=== PATIENT | female | born 1965 | race Caucasian/White ===

== ENCOUNTER → 2022-09-14 15:13 | Outpatient (CLI) | payer BC, SELFPAY ==
--- NOTE | ~2022-09-14 | MR_ITS ---
MRI of the left shoulder Technique: Axial proton-density fat-sat images, coronal proton density fat-sat and T2 fat-sat images, and sagittal T1-weighted and T2 fat-sat images were acquired. Clinical History: Pain Findings: There is mild AC joint degenerative change with small subacromial spur. Coracoclavicular, c oracoacromial, and coracohumeral ligaments are intact. There is mild tendinosis of the distal supraspinatus tendon, without partial or full-thickness tear. Infraspinatus tendon is intact. Subscapularis tendon is intact with minimal tendinosis. Tendon of the long head of the biceps is intact. Suspected subtle anterosuperior labral tear. There is mild chondromalacia along the inferior aspect of the humeral head. Inferior glenohumeral lig ament is intact. No joint effusion evident at the glenohumeral joint. No fluid distention of the suba cromial/subdeltoid bursa. No muscle atrophy or edema. Impression: Suspected subtle anterosuperior labral tear. MR arthrogram could be performed for further confirmatio n/evaluation. Mild rotator cuff tendinosis without partial or full-thickness tear. Mild AC joint degenerative change. Reviewed, dictated and finalized at location [facility]. [facility] Impression: Suspected subtle anterosuperior labral tear. MR arthrogram could be performed f or further confirmation/evaluation. Mild rotator cuff tendinosis without partial or full-thickness tear. Mild AC joint degenerative change.
== END ==
PROVIDERS: PCP Family Medicine; Visit Provider Orthopaedic Surgery
DX: M25.512 Pain in left shoulder (principal); G89.29 Other chronic pain; M75.82 Other shoulder lesions, left shoulder
CPT/HCPCS: 73221

== ENCOUNTER → 2022-09-20 13:46 | Outpatient (CLI) | payer BC, SELFPAY ==
--- NOTE | ~2022-09-20 | DEXA_ITS ---
Bone Density Report Name: BLANCO SALDIVAR Age: 56 Sex: Female Ethnicity: White Date of : 1965 Indication: postmenopausal; screening for osteoporosis; height loss; history of glucocorticoids; prior fracture; Referring Provider: LIANE CARVER Study: Bone densitometry was performed. Exam Date: September 20, 2022 Accession number: [id number] Bone Density: Region BMD T-score Z-score Classification AP Spine (L1-L4) 0.726 -2.9 -1.8 Osteoporosis Femoral Neck (Left) 0.581 -2.4 -1.3 Osteopenia Total Hip (Left) 0.731 -1.7 -1.0 Osteopenia Femoral Neck (Right) 0.607 -2.2 -1.1 Osteopenia Total Hip (Right) 0.706 -1.9 -1.2 Osteopenia Total Hip Mean 0.719 -1.8 -1.1 Osteopenia World Health Organization criteria for BMD impression classify patients as: Normal (T-score at or above -1.0), Osteopenia (T-score between -1.0 and -2.5), or Osteoporosis (T-score at or below -2.5). 10-year Fracture Risk: FRAX not reported because: Some T-score for Spine Total or Hip Total or Femoral Neck at or below -2.5 Clinical Information Provided by Patient: Has had a low trauma fracture Has taken Glucocorticoids Has used the following medications: Vitamin D, Calcium, MTV, prednisone Patient maximum height was 65 Menopause Age: 43 No regular weight bearing exercise Drinks caffeinated beverages Onset of menses at age 12 Number of children 2 Impression: The patient has established osteoporosis, based on the Total Spine T-score and the existence of a prior fracture. The patient has risk factors, including: previous fracture, history of glucocorticoid therapy. Discussion: HIGH RISK OF FRACTURE. BONE DENSITY IS UNDESIRABLY LOW AT ONE OR MORE SKELETAL SITES, CONSISTENT WITH POSTMENOPAUSAL OSTEOPOROSIS. This patient's lowest T-score, in a patient who has previously fractured, meets the World Health Organization's (WHO) criteria for severe osteoporosis. In untreated patients, the risk of osteoporotic fracture increases approximately two-fold for each 1.0 SD decrease in T-score. Low bone density is not the only risk factor for fracture; also consider factors such as patient's age, frailty or poor health, risk of falling, risk of injury, previous osteoporotic fracture, family history of osteoporosis, cigarette smoking, low body weight, etc. Not everyone with low bone mineral density has osteoporosis; osteomalacia and other metabolic bone disorders should also be considered. Patients who have osteoporosis should be evaluated for specific diseases and conditions (secondary causes) that may cause or contribute to bone loss. The [place] Association [employer] Endocrinologists (AACE) and National Osteoporosis Foundation (NOF) recommend pharmacologic intervention for all postmenopausal women whose T-score is in this range. The patient should follow a heal
== END ==
PROVIDERS: PCP Family Medicine; Visit Provider Obstetrics & Gynecology Gynecology
DX: Z78.0 Asymptomatic menopausal state (principal); M85.89 Other specified disorders of bone density and structure, multiple sites; M81.0 Age-related osteoporosis without current pathological fracture
CPT/HCPCS: 77080

== ENCOUNTER → 2023-05-05 08:52 | Outpatient (CLI) | payer BC, SELFPAY ==
--- NOTE | ~2023-05-05 | CT_ITS ---
EXAMINATION: CT chest abdomen pelvis w con DATE: 05/05/2023 09:17 INDICATION: Metastatic melanoma TECHNIQUE: Transaxial computed tomographic images of the chest, abdomen, and pelvis were obtained aft er the administration of 100 cc of Omnipaque 350 intravenous contrast. The dose-length product (DLP) was 1174.03 mGy-cm. Automated exposure control and iterative reconstruction technique were employed. COMPARISON: 05/06/2022 FINDINGS: CHEST CT: There is a stable 3 mm nodule of the right lower lobe. Additional 1 to 2 mm nodules of the lungs appe ar stable. Calcified pulmonary nodules are consistent with old granulomatous disease. There is mild d ependent atelectasis. No pleural effusion or pneumothorax. No pathologically enlarged thoracic lymph nodes are identified. The heart size is normal. ABDOMEN/PELVIS CT: There is a stable 3 mm hypoattenuating lesion of the spleen, likely a cyst or lymphangioma. The liver , pancreas, gallbladder, and adrenal glands are normal. Surgical changes in the stomach likely reflec t gastric sleeve surgery. The kidneys are unremarkable. No pathologically enlarged abdominal or pelvi c lymph nodes are identified. No free intraperitoneal gas or evidence of bowel obstruction. There are right pelvic surgical clips. The appendix is normal. A moderate volume of colonic stool is present. IMPRESSION: 1. No evidence of metastatic disease. Reviewed, dictated and finalized at location B.
== END ==
PROVIDERS: PCP Internal Medicine Medical Oncology; Visit Provider Internal Medicine Medical Oncology
DX: C79.9 Secondary malignant neoplasm of unspecified site (principal)
CPT/HCPCS: 71260; 74177; Q9967

== ENCOUNTER 2024-12-12 09:03 | Outpatient (CLI) | payer BC, SELFPAY ==
--- NOTE | ~2024-12-12 | DEXA_ITS ---
Bone Density Report Name: BLANCO SALDIVAR Age: 59 Sex: Female Ethnicity: White Date of : 1965 Indication: postmenopausal; screening for osteoporosis; height loss; cancer; Referring Provider: LIANE CARVER Study: Bone densitometry was performed. Exam Date: December 12, 2024 Accession number: [id number] Bone Density: Region BMD T-score Z-score Classification AP Spine(L1-L4) 0.745 -2.7 -1.5 Osteoporosis Femoral Neck (Left) 0.648 -1.8 -0.6 Osteopenia Total Hip (Left) 0.785 -1.3 -0.4 Osteopenia Femoral Neck (Right) 0.610 -2.1 -1.0 Osteopenia Total Hip (Right) 0.729 -1.7 -0.9 Osteopenia Total Hip Mean 0.757 -1.5 -0.7 Osteopenia World Health Organization criteria for BMD impression classify patients as: Normal (T-score at or above -1.0), Osteopenia (T-score between -1.0 and -2.5), or Osteoporosis (T-score at or below -2.5). 10-year Fracture Risk: FRAX not reported because: Some T-score for Spine Total or Hip Total or Femoral Neck at or below -2.5 Treated for osteoporosis Clinical Information Provided by Patient: Is being treated for osteoporosis Has used the following medications: Actonel (i.e. risedronate), Vitamin D, Calcium Has the following medical conditions: Cancer Patient maximum height was 65 Menopause Age: 42 No regular weight bearing exercise Drinks caffeinated beverages Onset of menses at age 12 Number of children 2 Impression: The patient has osteoporosis, based on the Total Spine T-score. Discussion: It is important to ask patients whether they are taking their medications and to encourage continued and appropriate compliance with their osteoporosis therapies to reduce fracture risk. It is also important to review their risk factors and encourage appropriate calcium and vitamin D intakes, exercise, fall prevention and other lifestyle measures. Follow-Up: Consider a repeat BMD and Vertebral Fracture Assessment (VFA) exam in 2 years or sooner if medically necessary, to reassess this patient's status. Reported by: VIRGIN[place] on 12/12/2024 9:40:00 AM. Reviewed, dictated and finalized at location [facility]
--- OUTSIDE RECORDS SUMMARY | 2024-12-12 09:34 | XMS_ITS | Clinical Summary ---
Author Organization [facility] Address [address] [place] [address] Care Team Providers Care Production Worker Name Role Phone Dhiraj Jane DO Primary Care Provider + Milad Jones DO Unavailable [phone] Alexandre Ingram MD Unavailable [phone] Allergies Active Allergy Reactions Criticality Noted Date Comments Iodine Itching,Rash,Other (See comments) Medium 12/31/2012 PATIENT ONLY HAS AN ALLERGY TO TOPICAL IODINE Sulfa (Sulfonamide Antibiotics) Unknown,Itching,Ra sh Medium 01/26/2017 Sulfachloropyrazine Sodium Hives Medium Reaction: hives, Sulfasalazine Rash Medium 12/31/2012 Medications multivitamin tabletIndications: Vitamin Deficiency Prevention Take 1 tablet by mouth daily Active L-TYROSINE ORAL Take 1,000 mg by mouth 2 (two) times a day Active elderberry fruit-honey 0.7-3 gram/7.5 mL liquid Take 1 each by mouth 2 (two) times a day Takes gummies Active fluticasone propionate (FLONASE) 50 mcg/actuation nasal spray Administer 1 spray into each nostril daily 16 g 08/04/20 22 Active risedronate (ACTONEL) 150 mg tablet TAKE 1 TABLET BY MOUTH ONCE EVERY MONTH 01/20/20 23 Active calcium/mag/D3/B12 /FA/B6/boron (CPBGQIN-BZI-S2-B1 1-L4-NA-BORON ORAL) 10/19/19 Active inulin (PREBIOTIC FIBER ORAL) 10/19/19 Active jgsvrlis-iuvklq-hx ack pepper 125 mg-6 mg- 50 mcg tablet,chewable 10/19/19 Active vitamin B complex no.6-ocshf-T-bioti n 1-60-300 mg-mg-mcg tablet 10/19/19 Active levothyroxine (SYNTHROID) 125 mcg tabletIndications: Acquired hypothyroidism Take 1 tablet (125 mcg total) by mouth daily 90 tablet 4 09/18/19 24 Active predniSONE (DELTASONE) 1 mg tablet TAKE 1 TABLET BY MOUTH THREE TIMES DAILY BEFORE MEAL(S) 90 tablet 12/12/19 24 Active Additional Information Patient not taking.Reported on 09/20/2024 biotin 1 mg tablet Take 1 tablet (1,000 mcg total) by mouth 3 (three) times a day Active Echinacea pur xt/goldenseal xt (ECHINACEA AND GOLDENSEAL ORAL) Take 450 mg by mouth Active UNABLE TO FIND Med Name: Silicia 6X 3 tablets daily Active hydrocortisone (Solu-CORTEF) 100 mg recon soln Inject 2 mL (100 mg total) into the muscle as instructed as needed (can't take po) 2 mL 1 01/28/20 24 Active Additional Information Patient not taking.Reported on 09/20/2024 ketorolac (TORADOL) 10 mg tablet Take 1 tablet (10 mg total) by mouth every 6 (six) hours as needed for pain 20 tablet 08/26/20 24 Active Additional Information Patient not taking.Reported on 09/20/2024 ondansetron (ZOFRAN) 4 mg tablet Take 1 tablet (4 mg total) by mouth every 6 (six) hours 12 tablet 08/26/20 24 Active Additional Information Patient not taking.Reported on 09/20/2024 predniSONE (DELTASONE) 5 mg tabletIndications: Acquired hypothyroidism,Adr enal insufficiency (Burt's disease) (HCC) Take 1.5 tablets (7.5 mg) by mouth daily 135 tablet 1 09/20/19 25 Active liothyronine (CYTOMEL) 5 mcg tabletIndications: Acquired hypothyroidism Take 1 tablet (5 mcg total) by mouth daily Take one half tab daily 09/20/19 25 026 Active oseltamivir (TAMIFLU) 75 mg capsule Take 1 capsule (75 mg total) by mouth 2 (two) times a day for 5 days 10 capsule 11/12/19 25 025 Active Problems Problem Noted Date Diagnosed Date Acute right ankle pain 04/15/2024 Chronic pansinusitis 04/05/2023 Assessment & Plan (04/05/2023 8:08 PM CDT): She has headaches which could be or maybe not due to sinusitis and I talked with her about this. I am recommending a sinus CT scan to further evaluate that. If it is negative I may be recommending referral to a neurologist or someone to manage tension headaches. She understands. Seasonal allergic rhinitis due to pollen 023 Assessment & Plan (04/05/2023 8:08 PM CDT): I recommended allergy testing. I otherwise recommended that she continue with her current allergy medications. We will schedule a follow-up afterwards to discuss these results and further plans. History of COVID-19 02/25/2022 History of DVT of lower extremity 01/26/2018 Polyneuropathy associated with critical illness 01/26/2018 S/P gastric surgery 01/25/2018 Metastatic melanoma 07/27/2017 Cancer Staging:Clinical stage from 12/01/2015:Stage IV(cT2a, cN3c, pM1c(0)) - Signed by Milad Jones DO on 09/01/2018 Chronic GERD 07/27/2017 HTN, goal below 140/90 07/27/2017 BMI 40.0-44.9, adult 02/23/2017 Assessment & Plan (02/23/2017 4:29 PM CDT): Diet and exercise discussed Bariatric surgery strongly recommended Pt probably aj have it done within the next few months Morbid obesity due to excess calories 02/23/2017 Adrenal insufficiency (Burt's disease) 2016 Assessment & Plan (02/23/2017 4:27 PM CDT): Continue Prednisone, 5 mg daily If tolerating well for the next week, call and will set up benigno for ACTH ( cosyntropin ) stimulation test. Hypophysitis 02/23/2017 Acquired hypothyroidism 02/23/2017 Assessment & Plan (02/23/2017 4:28 PM CDT): Check TSH, free T4 Adjust dose of Levothyroxine accordingly . 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, unspecified 12/15/2015 History of malignant melanoma 10/28/2015 Impaired fasting glucose 03/31/2015 Tarsal tunnel syndrome 07/29/2013 Plantar fasciitis 07/29/2013 Chronic osteomyelitis of foot 07/12/2013 Resolved Problems Problem Noted Date Diagnosed Date Resolved Date Adrenal insufficiency 05/29/20172019 Seasonal allergies 02/06/2014 5 Encounters Date Type Department Care Team Description 09/20/2024 8:15 AM GROUNDSMAN Office Visit [facility] [address] [place] [phone] Dhiraj Jane DO Annual physical exam (Primary Dx); Vitamin D deficiency; Seasonal allergic rhinitis due to pollen; Polyneuropathy associated with critical illness; Impaired fasting glucose; HTN, goal below 140/90; Chronic GERD; Adrenal insufficiency (Kris's disease) (HCC); Acquired hypothyroidism; Class 1 obesity without serious comorbidity with body mass index (BMI) of 30.0 to 30.9 in adult, unspecified obesity type; Acquired hypothyroidism; Adrenal insufficiency (Burt's disease) (HCC) from Last 3 Months Immunizations Immunization Administration Dates Next Due Influenza, Unspecified 09/17/2024(Deferr ed: Patient Refused),07/19/2023(Deferred: Patient Refused),07/19/2022(Deferred: Patient Refused),08/18/2020(Deferred: Patient Refused),06/18/2018(Deferred: Patient Refused) Pneumococcal Conjugate PCV 13 03/03/2023(Deferre d: Patient Refused) Pneumococcal Conjugate Pcv20 03/03/2023(Deferred : Patient Refused) Pneumococcal Polysaccharide PPV23 03/03/2023(Def erred: Patient Refused) Surgical History Surgery Date Site/Laterality Comments SECTION X2 LASIK 09/18/2006 - 09/17/2007 FOOT SURGERY 09/18/2011 - 09/17/2012 for plantar fascitis MELANOMA RESECTION 09/18/2012 - 09/17/2013 2016 SLEEVE GASTROPLASTY Medical History Medical History Date Comments Allergic rhinitis Deep vein thrombosis (HCC) Melanoma (HCC) Osteoporosis Adrenal insufficiency Family History Medical History Relation Name Comments No Known Problems Brother No Known Problems Daughter Heart attack Father Family history of myocardial infarction - (Added by TW Conv) Heart failure Father Prostate cancer Father Hypertension Mother Family history of hypertension - (Added by TW Conv) Osteoporosis Mother Bipolar disorder Son schizoaffective disorder Son Relation Name Status Comments Brother Alive Daughter Alive Father (Age 76) Mother Alive Son Alive Social History Tobacco Use Types Packs/Day Years Used Date Smoking Tobacco: Never Smokeless Tobacco: Never Tobacco Cessation:Counseling Given: Not Answered Alcohol Use Standard Drinks/Week Comments No 0 (1 standard drink = 0.6 oz pur e alcohol) AUDIT-C Answer Date Recorded Q1: How often do you have a drink containing alc ohol? Never 01/23/2024 Average Number of Drinks Not on file 024 Frequency of Binge Drinking Not on file 03/2024 PHQ-2 Answer Date Recorded PHQ-2 Total Score (If total score is 3 or more points, staff should administer the PHQ-9) 0 09/20/2024 Personal Safety Answer Date Recorded Have you ever been in or are you currently in a harmful physical or emotional relationship or is someone making you feel afraid or unsafe? Denies 08/26/2024 Comments No Sex and Gender Information Value Date Recorded Sex Assigned at Not on file Legal Sex Female 10:31 AM CDT Gender Identity Female 11/12/2020 2:39 PM GROUNDSMAN Sexual Orientation Straight 11/12/2020 2: 39 PM GROUNDSMAN Obstetrics History Last Filed Vital Signs Vital Sign Reading Time Taken Comments Blood Pressure 136/82 09/20/2024 8:08 AM GROUNDSMAN Pulse 88 09/20/2024 8:08 AM GROUNDSMAN Temperature 36.1 C (97 F) 09/20/2024 8:08 AM GROUNDSMAN Respiratory Rate 18 09/20/2024 8:08 AM GROUNDSMAN Oxygen Saturation 97% 09/20/2024 8:08 AM GROUNDSMAN Inhaled Oxygen Concentration - - Weight 89.2 kg (196 lb 9.6 oz) 09/20/2024 8:08 A M GROUNDSMAN Height 162.6 cm (5' 4 ) 09/20/2024 8:08 AM GROUNDSMAN Body Mass Index 33.75 09/20/2024 8:08 AM GROUNDSMAN Plan of Treatment Health Maintenance Due Date Last Done Comments Breast Cancer Screening-Mammogram 1965 Cervical Cancer Screening 1965 Hepatitis C Screening 1965 DTaP/Tdap/Td Vaccine (1 - Tdap) 1977 Hepatitis B Screening 1984 Pneumococcal vaccine <65 (1 of 2 - PCV) 1985 Zoster Vaccine (1 of 2) 1985 Influenza Vaccine (#1) 2024 Depression Screening 09/20/2025 09/20/2024, 03/03/2023, 02/25/2022, Additional history exists Regular Well Visit/Exam 18-64 09/20/2025, 03/03/2023, 02/25/2022, Additional history exists Colon Cancer Screening-Colonoscopy 06/28/2027 06/28/2022 Colon Cancer Screening-CT Colonography Discontinued 06/28/2022 Colon Cancer Screening-DNA Stool Discontinued 06/28/20 22, 02/22/2021 Colon Cancer Screening-FIT Discontinued 06/28/2022, Colon Cancer Screening-Sigmoidoscopy Discontinued 06/28/2022 Procedures Procedure Name Priority Date/Time Associated Diagnosis Comments COLONOSCOPY Routine 06/28/2022 from Last 3 Months or Most Recently Relevant to Health Maintenance Results * (ABNORMAL) Colonoscopy (06/28/2022) Anatomical Region Laterality Modality Other Historical Provider ENDOSCOPY PROCEDURES Yenny gentile Result from Last 3 Months or Most Recently Relevant to Health Maintenance Insurance [facility] Care Teams Production Worker Relationship Specialty Start Date End Date Dhiraj Jane DO [address] [place] [address] [id number] PCP - General 01/12/17 Milad Jones DO [address] [place] [address] [phone] Medical Oncologist/Hot Stick Man Hematology and Oncology 08/16/18 Alexandre Ingram MD [address] [place] [address] [phone] Referring Physician Surgery 10/09/20
--- OUTSIDE RECORDS SUMMARY | 2024-12-12 09:34 | XMS_ITS | Clinical Summary ---
Author Organization [facility] Address [address] [place] [address] Care Team Providers Care Cashier Assistant Name Role Phone Unavailable Primary Care Provider Unavailabl e Encounters Date Type Department Care Team Description 12/04/2024 External Device Data [facility] ABSTRACTION Provider, Abstract 11/27/2024 External Device Data [facility]STRACTION Provider, Abstract 11/26/2024 External Device Data [facility] ABSTRACTION Provider, Abstract 11/23/2024 External Device Data [facility] ABSTRACTION Provider, Abstract 11/23/2024 External Device Data ST[facility] ABSTRACTION Provider, Abstract 11/20/2024 External Device Data STL ABSTRACTION Provider, Abstract 11/06/2024 External Device Data [facility] ABSTRACTION Provider, Abstract 10/22/2024 External Device Data [facility] ABSTRACTION Provider, Abstract 10/10/2024 External Device Data [facility] ABSTRACTION Provider, Abstract from Last 3 Months Social History Tobacco Use Types Packs/Day Years Used Date Smoking Tobacco: Never Assessed Comments Unknown Sex and Gender Information Value Date Recorded Sex Assigned at Not on file Legal Sex Female 9:31 AM CDT Gender Identity Not on file Sexual Orientation Not on file Plan of Treatment Health Maintenance Due Date Last Done Comments Pre-Diabetes and Diabetes Screening 1965 HEPATITIS B VACCINES (1 of 3 - 19+ 3-dose series) 1985 PAP SMEAR 1987 CERVICAL CANCER SCREENING 1996 HPV/Cotest (30-65) 1996 PAP SMEAR 1996 DTAP/TDAP/TD VACCINES (1 - Tdap) 03/14/2006 03/13/20 06 BREAST CANCER SCREENING 2006 FIT-DNA Q 3 years 2011 FIT/FOBT Q 1 year 2011 Flex Sig/CT Colonography Q 5 years 2011 ZOSTER VACCINE (1 of 2) 2016 INFLUENZA VACCINE (#1) 2024 COLORECTAL SCREENING 06/28/2032 06/28/2022 Colorectal Cancer Screening 06/28/2032 PNEUMOCOCCAL VACCINE 0-49 YEARS Aged Out No longer eligible based on patient's age to complete this topic Insurance [employer] CHOICE
--- OUTSIDE RECORDS SUMMARY | 2024-12-12 09:34 | XMS_ITS | Clinical Summary ---
Author Organization [facility] Address [address] [place] [address] Care Team Providers Care Soil Expert Name Role Phone BuckDhiraj Primary Care Provider [phone] Source Comments [facility],non-owned Affiliates and Associated Physician Practices is amultiple site organization consisting of ambulatory clinics and hospital sitesin [place], [place], [place] and [place]. This disclosure is being madepursuant to the Care Everywhere program and may not contain all information available regarding this patient. Last updated 18.[facility] Allergies Active Allergy Reactions Criticality Noted Date Comments Iodine Itching,Rash Medium 12/31/2012 Sulfa Drugs Rash Medium 12/31/2012 Medications * Be aware that medications may not be up to date on this document. Alwaysverify current medications with the patient. Medication Sig Dispensed Refills Start Date End Date Status fluticasone propionate (FLONASE) 50 MCG/ACT nasal spray Active levothyroxine (SYNTHROID) 137 MCG tablet 6 12/02/2018 Active predniSONE (DELTASONE) 5 MG tablet 2 12/02/2018 Active hydrocortisone, rectal, (PROCTOZONE-HC) 2.5 % cream 07/27/2018 Active clotrimazole-betameth asone (LOTRISONE) 1-0.05 % cream as needed. 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, unspecified 12/15/2015 Malignant melanoma of lower extremity or hip Family History Medical History Relation Name Comments None Known Brother Status: Alive None Known Daughter Status: Alive Cancer - Prostate Father Status: Ollie madrigal Hypertension Mother Status: Alive None Known Sister None Status: Alive None Known Son Status: Alive Relation Name Status Comments Brother Daughter Father Mother Sister None Son Social History Tobacco Use Types Packs/Day Years Used Date Smoking Tobacco: Never Smokeless Tobacco: Never Alcohol Use Standard Drinks/Week Comments No 0 (1 standard drink = 0.6 oz pur e alcohol) Sex and Gender Information Value Date Recorded Sex Assigned at Not on file Gender Identity Not on file Sexual Orientation Not on file Last Filed Vital Signs Vital Sign Reading Time Taken Comments Blood Pressure 142/92 01/15/2020 9:55 AM CDT Pulse 74 01/15/2020 9:55 AM CDT Temperature 36.8 C (98.2 F) 01/15/2020 9:55 AM CDT Respiratory Rate 20 01/15/2020 9:55 AM CDT Oxygen Saturation 97% 01/15/2020 9:55 AM CDT Inhaled Oxygen Concentration - - Weight 85.7 kg (189 lb) 01/15/2020 9:55 AM CDT Height 165.1 cm (5' 5 ) 01/15/2020 9:55 AM CDT Body Mass Index 31.45 01/15/2020 9:55 AM CDT Plan of Treatment Health Maintenance Due Date Last Done Comments COLOGUARD (AGES 45-75) - COLON CA SCREENING 1966 COLON MONITORING 1966 COLONOSCOPY - COLON CA SCREENING 1966 CT COLONOGRAPHY - COLON CA SCREENING 1966 Colorectal Cancer Screening 1966 FIT - COLON CA SCREENING 1966 FLEX SIG - COLON CA SCREENING 1966 LIPID TESTING 1966 MAMMOGRAM 1966 PAP SMEAR 1966 COVID-19 VACCINE (#1) 1971 HIV SCREENING 1981 HEPATITIS C SCREENING 10/13/1984 DTAP/TDAP/TD VACCINES (1 - Tdap) 1985 HEPATITIS B VACCINE (1 of 3 - 19+ 3-dose series) 1985 PNEUMOCOCCAL VACCINE 50+ (1 of 2 - PCV) 1985 ZOSTER VACCINE (1 of 2) 1985 SCREENING FOR DIABETES 12/16/2018 6, 12/16/2015, 12/15/2015, Additional history exists INFLUENZA VACCINE (#1) 2024 DEPRESSION SCREENING 09/18/2024 HIB VACCINE Aged Out No longer eligi ble based on patient's age to complete this topic HPV VACCINE Aged Out No longer eligi ble based on patient's age to complete this topic MENINGOCOCCAL (Group B) VACCINE SHARED DECISION-MAKING Aged Out No longer eligible based on patient's age to complete this topic MENINGOCOCCAL GROUPS A/C/Y/W VACCINE Aged Out No longer eligible based on patient's age to complete this topic Procedures Procedure Name Priority Date/Time Associated Diagnosis Comments BASIC METABOLIC PANEL (CALCIUM TOTAL) Routine 12/17/2015 3:20 AM CDT from Last 3 Months or Most Recently Relevant to Health Maintenance Results * (ABNORMAL) BASIC METABOLIC PANEL (CALCIUM TOTAL) (12/17/2015 3:20 AM CDT) BUN 9 7 - 26 mg/dL [facility] Creatinine 0.9 0.6 - 1.2 mg/dL [facility] Sodium 136 136 - 145 mmol/L [facility] Potassium 3.8 3.5 - 4.5 mmol/L [facility] Chloride 104 98 - 107 mmol/L [facility] CO2 27 22 - 29 mmol/L [facility] Glucose 103 70 - 115 mg/dL [facility] Calcium 8.5 8.4 - 10.2 mg/dL [facility] Anion Gap 9 8 - 18 [facility] BUN/Creatinine Ratio 10 7 - 23 [facility] Osmolality Calculated 267(L) 270 - 300 mOsm/kg [facility] eGFR >60 >60 mL/min/1.7 3 m2 [facility] Blood specimen (specimen) BLOOD SPECIMEN / Unknown 12/17/2015 3:20 AM CDT 12/17/2015 3:27 AM CDT Alexandre Ingram MD LAB - CHEMISTRY [facility] [address] [phone] from Last 3 Months or Most Recently Relevant to Health Maintenance Advance Directives Documents on File Type Date Recorded Patient Metaphysics Teacher Expl anation Advance Directives and Livin g Will 12/15/2015 12:00 AM Care Teams Soil Expert Relationship Specialty [place] [address] [place] [id number] PCP - General 11/04/15
--- OUTSIDE RECORDS SUMMARY | 2024-12-12 09:34 | XMS_ITS | Encounter Summary ---
Author Organization [facility] Address [address] [place] [address] Care Team Providers Care Human Resource Assistant Name Role Phone Dhiraj Duque MD Primary Care Provider Dhiraj Harrison DO Primary Care Provider [phone] Encounter Details Date Type Department Care Team (Latest Contact Info) Description 05/18/2018 Abstract [facility] Anuja Pizarro MD [address] [place] [id number] Social History Tobacco Use Types Packs/Day Years Used Date Smoking Tobacco: Never Assessed Comments Unknown Sex and Gender Information Value Date Recorded Sex Assigned at Not on file Legal Sex Female 5:28 PM CDT Gender Identity Not on file Sexual Orientation Not on file documented as of this encounter Plan of Treatment Not on file documented as of this encounter Visit Diagnoses Not on filedocumented in this encounter Additional Health Concerns Infection Onset Date Last Indicated Resolved Time COVID-19 Rule Out 08/18/2021 08/18/2021 08/20/2021 7:41 AM WOVEN LABEL DESIGNER COVID-19 Rule Out 10/04/2021 10/04/2021 10/05/2021 4:55 PM WOVEN LABEL DESIGNER COVID-19 Confirmed 10/04/2021 10/04/2021 12:35 AM WOVEN LABEL DESIGNER documented as of this encounter Care Teams Human Resource Assistant Relationship Specialty Start Date End Date Dhiraj Duque MD PCP - General 01/03/13 08/27/18 Dhiraj Jane DO [address] [place], [place] [id number] PCP - General FAMILY PRACTICE 08/28/18 documented as of this encounter
--- OUTSIDE RECORDS SUMMARY | 2024-12-12 09:34 | XMS_ITS | Referral Summary ---
Author Organization [facility] Address [address] [place] [address] Care Team Providers Care Weaving Machine Operator Name Role Phone Dhiraj Jane DO Primary Care Provider + Milad Jones DO Unavailable [phone] Alexandre Ingram MD Unavailable [phone] Encounters Date Type Department Care Team Description 09/20/2024 8:15 AM FUNNEL COATER Office Visit [facility] Primary Care [address] [place] [address] [address] [place] [phone] Dhiraj Jane DO Annual physical exam (Primary Dx); Vitamin D deficiency; Seasonal allergic rhinitis due to pollen; Polyneuropathy associated with critical illness; Impaired fasting glucose; HTN, goal below 140/90; Chronic GERD; Adrenal insufficiency (Coos's disease) ([facility]); Acquired hypothyroidism; Class 1 obesity without serious comorbidity with body mass index (BMI) of 30.0 to 30.9 in adult, unspecified obesity type; Acquired hypothyroidism; Adrenal insufficiency (Coos's disease) ([facility]) from Last 3 Months Allergies Active Allergy Reactions Criticality Noted Date [...] EVERY MONTH 01/20/20 23 Active calcium/mag/D3/B12 /FA/B6/boron ([id number] 7-G4-TC-BORON ORAL) 10/19/19 23 Active inulin (PREBIOTIC FIBER ORAL) 10/19/19 23 Active fdpmgjwt-aldjwq-br ack pepper 125 mg-6 mg- 50 mcg tablet,chewable 10/19/19 23 Active vitamin B complex no.7-xbwdz-L-bioti n 1-60-300 mg-mg-mcg tablet 10/19/19 23 Active levothyroxine (SYNTHROID) 125 mcg tabletIndications: Acquired [...] 5 mg tabletIndications: Acquired hypothyroidism,Adr enal insufficiency (Coos's disease) (HCC) Take 1.5 tablets (7.5 mg) [...] due to excess calories 02/23/2017 Adrenal insufficiency (Coos's disease) 2016 Assessment & Plan (02/23/2017 4:27 [...] Adrenal insufficiency 05/29/20172019 Seasonal allergies 02/06/2014 5 Immunizations Immunization Administration Dates Next Due Influenza, Unspecified 09/17/2024(Deferr ed: Patient Refused),07/19/2023(Deferred: Patient Refused),07/19/2022(Deferred: Patient Refused),08/18/2020(Deferred: Patient Refused),06/18/2018(Deferred: Patient Refused) Pneumococcal Conjugate PCV 13 03/03/2023(Deferre d: Patient Refused) Pneumococcal Conjugate Pcv20 03/03/2023(Deferred : Patient Refused) Pneumococcal Polysaccharide PPV23 03/03/2023(Def erred: Patient Refused) Social History Tobacco Use Types Packs/Day Years [...] CDT Gender Identity Female 11/12/2020 2:39 PM FUNNEL COATER Sexual Orientation Straight 11/12/2020 2: 39 PM FUNNEL COATER Last Filed Vital Signs Vital Sign Reading Time Taken Comments Blood Pressure 136/82 09/20/2024 8:08 AM FUNNEL COATER Pulse 88 09/20/2024 8:08 AM FUNNEL COATER Temperature 36.1 C (97 F) 09/20/2024 8:08 AM FUNNEL COATER Respiratory Rate 18 09/20/2024 8:08 AM FUNNEL COATER Oxygen Saturation 97% 09/20/2024 8:08 AM FUNNEL COATER Inhaled Oxygen Concentration - - Weight 89.2 kg (196 lb 9.6 oz) 09/20/2024 8:08 A M FUNNEL COATER Height 162.6 cm (5' 4 ) 09/20/2024 8:08 AM FUNNEL COATER Body Mass Index 33.75 09/20/2024 8:08 AM FUNNEL COATER Plan of Treatment Not on file Procedures Procedure Name Priority Date/Time Associated Diagnosis Comments COLONOSCOPY Routine 06/28/2022 from Last 3 Months or Most Recently Relevant to Health Maintenance Results * (ABNORMAL) Colonoscopy (06/28/2022) Anatomical Region Laterality Modality Other Historical Provider ENDOSCOPY PROCEDURES Yenny gentile Result from Last 3 Months or Most Recently Relevant to Health Maintenance Insurance [employer] Care Teams Weaving Machine Operator Relationship Specialty Start Date End Date Dhiraj Jane DO [address] [place] [address] PCP - General 01/12/17 Milad Jones DO [address] [place] [address] Medical Oncologist/Postal Transportation Clerk Hematology and Oncology 08/16/18 Alxeandre Ingram MD [address] [place] [address] Referring Physician Surgery 10/09/20
--- OUTSIDE RECORDS SUMMARY | 2024-12-12 09:34 | XMS_ITS | Encounter Summary ---
Author Organization [facility] Care Team Providers Care Long Wall Mining Machine Tender Name Role Phone Dhiraj Jane DO Primary Care Provider + Milad Jones DO Unavailable [phone] Alexandre Ingram MD Unavailable [phone] Encounter Details Date Type Department Care Team (Latest Contact Info) Description 08/17/2017 Orders Only [facility] CLINCONV Provider, MD Aye [address] [place] [address] Social History Tobacco Use Types Packs/Day Years Used Date Smoking Tobacco: Never Alcohol Use Standard Drinks/Week Comments No 0 (1 standard drink = 0.6 oz pur e alcohol) Comments Unknown Sex and Gender Information Value Date Recorded Sex Assigned at Not on file Legal Sex Female 10:31 AM CDT Gender Identity Female 11/12/2020 2:39 PM CLINICAL TECHNICIAN Sexual Orientation Straight 11/12/2020 2: 39 PM CLINICAL TECHNICIAN documented as of this encounter Plan of Treatment Not on file documented as of this encounter Procedures Procedure Name Priority Date/Time Associated Diagnosis Comments PROCEDURE - RESULT 09/01/2017 12 :00 AM CLINICAL TECHNICIAN documented in this encounter Results * PROCEDURE - RESULT (09/01/2017 12:00 AM CLINICAL TECHNICIAN) Narrative 09/01/2017 12:00 AM CLINICAL TECHNICIAN Ordered by an unspecified provider. us Historical Provider Final Res ult documented in this encounter Visit Diagnoses Not on filedocumented in this encounter Additional Health Concerns Infection Onset Date Last Indicated Resolved Time COVID: Suspected 08/04/2022 08/04/2022 08/04/2022 8:24 AM CLINICAL TECHNICIAN Influenza, adult 08/04/2022 08/04/2022 08/11/2022 3:05 AM CLINICAL TECHNICIAN documented as of this encounter Care Teams Long Wall Mining Machine Tender Relationship Specialty Start Date End Date Dhiraj Jane DO [address] [facility] [address] [place] [address] PCP - General 01/12/17 [place] [address] [place] [address] Medical Oncologist/Line Repairer Tower Hematology and Oncology 08/16/18 Alexadnre Ingram MD [address] [place] [phone] Referring Physician Surgery 10/09/20 documented as of this encounter
--- OUTSIDE RECORDS SUMMARY | 2024-12-12 09:34 | XMS_ITS | Encounter Summary ---
Author Organization [facility] Address [address] [place] [address] Care Team Providers Care Sack Keeper Name Role Phone Dhiraj Jane DO Primary Care Provider [phone] Encounter Details Date Type Department Care Team (Late st Contact Info) Description 11/19/[address] [address] [facility] Diabetes and Endocrinology - [address] [address] Jerica Crook MD Test Results Social History Tobacco Use Types Packs/Day Years Used Date Smoking Tobacco: Never Smokeless Tobacco: Never Alcohol Use Standard Drinks/Week Comments No 0 (1 standard drink = 0.6 oz pur e alcohol) AUDIT-C Answer Date Recorded Frequency of Alcohol Consumption Never 09/05/2018 Average Number of Drinks Not on file 018 Frequency of Binge Drinking Not on file 08/18 Comments Unknown Sex and Gender Information Value [...] Rule Out 08/18/2021 08/18/2021 08/20/2021 7:41 AM HISTOLOGICAL ILLUSTRATOR COVID-19 Rule Out 10/04/2021 10/04/2021 10/05/2021 4:55 PM HISTOLOGICAL ILLUSTRATOR COVID-19 Confirmed 10/04/2021 10/04/2021 12:35 AM HISTOLOGICAL ILLUSTRATOR documented as of this encounter Care Teams Sack Keeper Relationship Specialty Start Date End Date Dhiraj Jane DO [address] [place] [address] PCP - General FAMILY PRACTICE 08/28/18 documented as of this encounter
--- OUTSIDE RECORDS SUMMARY | 2024-12-12 09:35 | XMS_ITS | Clinical Summary ---
Author Organization [facility] Address [facility] [place] [address] Care Team Providers Care Csw Name Role Phone Dhiraj Jane DO Primary Care Provider [phone] Allergies Active Allergy Reactions Criticality Noted Date Comments Iodine Rash,Itching,Unknown ,Ot her (see comment) Medium 07/26/2012 Reaction: itiching, TOPICAL IODINE ONLY Patient only allergic to topical iodine PATIENT ONLY HAS AN ALLERGY TO TOPICAL IODINE Sulfa Antibiotics Rash,Itching,Unknown Medium 07/26/20 12 Sulfasalazine Rash Medium 12/31/2012 Medications estradiol 0.1 MG/GM vaginal cream As needed 0 8 Active Multiple Vitamin (MULTI VITAMIN DAILY) Tab Take 1 tablet by mouth daily. Active clotrimazole-betam ethasone cream as needed. 8 Active Calcium 250 MG Cap Take 2 capsules by mouth daily. Active Misc Natural Products (SM ECHINACEA-GOLDENSE AL OR) 450mg daily Active NON FORMULARY Elderberry fruit-honey gummies Active PROCTO-MED HC 2.5 % rectal cream as needed. 1 Active Cholecalciferol (VITAMIN D3) 1.25 MG (25655 UT) Tab 2 Active promethazine (PHENERGAN) 25 MG tablet TAKE 1/2 (ONE-HALF) TABLET BY MOUTH EVERY 6 HOURS NEEDED FOR NAUSEA 2 Active polyethylene glycol-electrolyte s (NULYTELY) 420 g solution USE DIRECTED BY OFFICE 2 Active predniSONE (DELTASONE) 5 mg tabletIndications: Adrenal insufficiency ([facility]) Take 1 tablet in am and take 1/2 tablet with supper 150 tablet 3 3 Active levothyroxine (SYNTHROID) 125 MCG tabletIndications: Acquired central hypothyroidism Take 1 tablet (125 mcg total) by mouth every morning. 30 tablet 4 3 Active liothyronine (CYTOMEL) 5 MCG TabIndications:Lym phocytic hypophysitis ([facility]) Take 2 tablets by mouth once daily 180 tablet 3 Active Active Problems Problem Noted Date Diagnosed Date Long-term current use of steroids 02/27/2018 History of deep vein thrombosis of lower extremi ty 01/26/2018 Polyneuropathy associated with critical illness ([facility]) 01/26/2018 Metastatic malignant melanoma ([facility]) 07/27/2017 Abnormal blood chemistry 05/29/2017 Adrenal insufficiency ([facility]) 05/29/2017 BMI 40.0-44.9, adult 02/23/2017 Overview (09/05/2018): Last Assessment & Plan: Diet and exercise discussed Bariatric surgery strongly recommended Pt probably aj have it done within the next few months 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 Atherosclerosis of coronary artery 01/28/2017 Iron deficiency anemia 01/28/2017 Kidney dysfunction 01/28/2017 Polyphagia 01/28/2017 Vitamin D deficiency 01/28/2017 Unspecified protein-calorie malnutrition ([facility]) 01/28/2017 Cellulitis 03/04/2016 Other specified postprocedural states 12/21/2015 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, 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[facility]) 12/15/2015 Malignant melanoma of skin ([facility]) 10/2015 Groin mass 10/28/2015 History of malignant melanoma 10/28/2015 Acute shoulder pain, unspecified laterality 04/19 Morbid obesity 03/31/2015 Acute UTI 07/21/2014 Seasonal allergies 02/06/2014 Tingling 08/06/2013 Plantar fasciitis 07/29/2013 Tarsal tunnel syndrome 07/29/2013 Capsulitis 07/12/2013 Chronic osteomyelitis of foot ([facility]) 07/12/2013 Malignant melanoma of lower extremity, including hip ([facility]) 12/31/2012 Acquired central hypothyroidism 07/26/2012 Overview (09/05/2018): Last Assessment & Plan: Check TSH, free T4 Adjust dose of Levothyroxine accordingly . 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 Impaired fasting glucose 03/31/201503/2020 Immunizations Name Administration Dates Next Due MMR (Generic) 03/13/2006 Td (Tenivac) preservative free 03/13/2006 Family History Medical History Relation Comments Heart Father Hypertension Mother Stroke Paternal Grandfather Stroke Paternal Grandmother Relation Status Comments Father Mother Alive Paternal Grandfather Paternal Grandmother Social History Tobacco Use Types Packs/Day Years Used Date Smoking Tobacco: Never Smokeless Tobacco: Never Alcohol Use Standard Drinks/Week Comments No 0 (1 standard drink = 0.6 oz pur e alcohol) AUDIT-C Answer Date Recorded Frequency of Alcohol Consumption Never 09/05/2018 Average Number of Drinks Not on file 018 Frequency of Binge Drinking Not on file 08/18 PHQ-2 Answer Date Recorded PHQ-2 Score - If the patient scores above 3, please move on to questions 3-9 0 04/28/2022 Comments Unknown Sex and Gender Information Value Date Recorded Sex Assigned at Not on file Legal Sex Female 5:28 PM CDT Gender Identity Not on file Sexual Orientation Not on file Last Filed Vital Signs Vital Sign Reading Time Taken Comments Blood Pressure 126/76 04/28/2022 9:13 AM CDT Pulse 71 04/28/2022 9:13 AM CDT Temperature 36.8 C (98.2 F) 04/28/2022 9:13 AM CDT Respiratory Rate 20 04/28/2022 9:13 AM CDT Oxygen Saturation 98% 04/28/2022 9:13 AM CDT Inhaled Oxygen Concentration - - Weight 86.9 kg (191 lb 9.6 oz) 04/28/2022 9:13 A M CDT Height 165.1 cm (5' 5 ) 04/28/2022 9:13 AM CDT Body Mass Index 31.88 04/28/2022 9:13 AM CDT Plan of Treatment Health Maintenance Due Date Last Done Comments ASCVD Statin 1966 Cervical Cancer Screening Pa p Smear (Age 30 to 64) Every 3 Years 1966 Colorectal Cancer Screening Colonoscopy (10 Years) 1966 Annual Physical 1969 Pneumococcal Vaccine: Pediatrics (0 to 5 Years) and At-Risk Patients (6 to 64 Years) (1 of 2 - PCV) 1972 Hepatitis C 1984 Hepatitis B Vaccines (1 of 3 - 19+ 3-dose series) 1985 Cervical Cancer Screening Pa p with HPV Testing (Age 30 to 64) Every 5 Years 1996 Cervical Cancer Screening wi HPV 1996 DTaP, Tdap and Td Vaccines ( 1 - Tdap) 03/14/2006 03/13/2006 Mammogram Screening 2006 Zoster Vaccines (1 of 2) 2016 ASCVD LDL 01/28/2018 01/28/2017, 08/13/2014, 08/09/2013 COVID-19 Vaccine ( - 2023-2 5 season) 2024 Influenza Adult (#1) 2024 Meningococcal B Vaccine Aged Out No l onger eligible based on patient's age to complete this topic Meningococcal Vaccine Aged Out No rosina chani eligible based on patient's age to complete this topic RSV Immunizations Under 20 Months Aged Out No longer eligible b ased on patient's age to complete this topic Procedures Procedure Name Priority Date/Time Associated Diagnosis Comments LIPID PANEL Routine 01/28/2017 8:06 AM CDT from Last 3 Months or Most Recently Relevant to Health Maintenance Results * LIPID PANEL (01/28/2017 8:06 AM CDT) CHOLESTEROL 176 0 - 199 mg/dL [facility] TO EPIC CONVERSION TRIGLYCERIDES 110 0 - 149 mg/dL [facility] TO EPIC CONVERSION HDL 54 40 - 60 mg/dL [facility] TO EPIC CONVERSION LDL (CALCULATED) 100 0 - 130 [facility] TO EPIC CONVERSION RISK 3.3 [facility] T O EPIC CONVERSION 01/28/2017 8:06 AM CDT 01/28/2017 8:06 AM CDT Narrative [facility] TO EPIC CONVERSION - 01/28/2017 8:06 AM CDT Order Comment: [id number] 1:53PM by Dhiraj Jane: send results to ordering MD. Result Communication: Call patient with results us Dhiraj Jane DO LABORATORY Final Result [facility] TO EPIC CONVERSION from Last 3 Months or Most Recently Relevant to Health Maintenance Insurance Care Teams Csw Relationship Specialty Start Date End Date Dhiraj Jane DO [address] [place] [id number] PCP - General FAMILY PRACTICE 08/28/18
== END 2024-12-12 09:04 | disposition home or self-care (01) ==
LOC: ANHIMG 09:05
PROVIDERS: PCP Internal Medicine Medical Oncology; Visit Provider Obstetrics & Gynecology Gynecology
DX: Z13.820 Encounter for screening for osteoporosis (principal); M81.8 Other osteoporosis without current pathological fracture; M85.89 Other specified disorders of bone density and structure, multiple sites; Z78.0 Asymptomatic menopausal state
CPT/HCPCS: 77080

== ENCOUNTER 2025-03-12 15:31 | Outpatient (CLI) | payer OTHER, SELFPAY ==
[2025-03-12 16:57] LABS: Hematocrit 42.7 % (37.0-47.0); Hemoglobin 13.9 g/dL (12.0-15.0); Mean Corpuscular HGB Conc 32.6 g/dl (32-36); Mean Corpuscular Hemoglobin 27.6 pg (26-34); Mean Corpuscular Volume 84.7 fl (80-100); Mean Platelet Volume 10.4 fl (7.4-10.4); Platelet Count Result 261 k/mm3 (150-375); Red Blood Count 5.04 M/mm3 (4.2-5.4); Red Cell Distribution Width 12.7 % (11.5-14.5); White Blood Count 8.8 K/mm3 (4.5-10.0)
[2025-03-12 17:06] LABS: Alanine Aminotransferase 20 U/L (6-35); Albumin Level 4.5 g/dL (3.5-5.1); Alkaline Phosphatase 65 U/L (38-126); Anion Gap 9 mmol/L (4-12); Aspartate Amino Transferase 36 U/L (14-36); Bilirubin,Total 0.4 mg/dL (0.2-1.3); Blood Urea Nitrogen 15 mg/dL (7-17); Carbon Dioxide 28 mmol/L (22-30); Chloride 103 mmol/L (98-107); Estimated Glomerular Filt Rate > 60; Glucose 87 mg/dL (65-110); Potassium 4.1 mmol/L (3.4-5.0); Sodium 140 mmol/L (137-145); Total Protein 7.9 g/dL (6.3-8.2)
[2025-03-12 17:14] LABS: Prealbumin 22.9 mg/dL (17.6-36.0)
[2025-03-12 17:23] LABS: Iron 46 ug/dL (37-170)
[2025-03-16 14:03] LABS: Vitamin B1 21 nmol/L (8-30)
== END 2025-03-12 15:32 | disposition home or self-care (01) ==
PROVIDERS: PCP Internal Medicine Medical Oncology; Visit Provider Surgery Plastic and Reconstructive Surgery
DX: R63.4 Abnormal weight loss (principal)
CPT/HCPCS: 36415; 80053; 83540; 84134; 84425; 85027